=== PATIENT | male | born 1955 | race Caucasian/White ===

== ENCOUNTER 2017-09-25 20:12 | Emergency (ER) | payer MEDICAID ==
--- NOTE | 2017-09-25 20:15 | EDPHY ---
H & P Source: Patient, RN/MD, EMS, Old records Exam Limitations: No limitations - Personal History Tetanus Vaccine Date: 2013 - Medical/Surgical History Hx Asthma: No Hx Chronic Respiratory Disease: No Hx Diabetes: No Hx Cardiac Disease: Yes Hx Renal Disease: No Hx Cirrhosis: No Hx Alcoholism: No Hx HIV/AIDS: No Hx Splenectomy or Spleen Trauma: No Other PMH: pt states hx of stomach ulcers, IBS, left shoulder surgery x2, right shoulder surgery, right ACL surgery, Kleinfelter's syndrome; HTN; Recurrent Angina. schizoaffective d/o - Social History Smoking Status: Never smoked Time Seen by Provider: 09/25/17 20:15 HPI/ROS: HPI: This is a 62-year-old male presents with Chief Complaint: M1 hold Location:psych Quality: M1 hold Duration: Today Signs and Symptoms: denies auditory and visual command hallucinations, denies suicidal ideation with a plan, denies homicidal ideation, paranoid, insomnia Timing: Severity: Context: medical officer took patient as a walk-in at [facility]. Community [employer]ment Act Officer name: Ryley. The behavioral health counselor felt like he was having it increased internal dialogue and was gravely disabled due to not taking his medications for over 3 weeks for schizophrenia. Chart review shows that he was diagnosed with schizophrenia in April of 2016 secondary to chronic delusions and auditory hallucinations. He has become recently homeless after he was incarcerated for he neighbor and lost his trailer. He had been renting the trailer for 29 years but lost due to non payment of rent. Patient reports that he normally takes Haldol 2 mg daily as well as a sleeping pill medication but has not had these medications for 3 weeks due to transportation issues. He reports that his truck battery does not work and he has limited income. He has been using the bus for his basic needs but feels that bus fare to his pharmacy cost too much. He denies any auditory or visual hallucinations to me. He asked me if it is unusual to be diagnosed with schizophrenia in her 60s when he only here internal voices? It appears that he had been on Seroquel prior and has history of noncompliance. [facility] of [facility]. Patient on is hard of hearing and no longer has his hearing aids as he flushed it down the toilet while in half-way because he believed it was " tracking him." He is most concerned with not being able to sleep since February. Also reports, "chips of bone" in left foot due to an accidental tripping approximately a few weeks ago. Modifying Factors: Comment: ROS: see HPI Constitutional: No fever, no chills, no weight loss Eyes: No blurred vision Respiratory: No shortness of breath, no cough Cardiovascular: No chest pain Gastrointestinal: No nausea, no vomiting, no diarrhea Genitourinary: No dysuria Extremities: No myalgias Neurologic: No weakness, no numbness Skin: No rashes Hematologic: No bruising, no bleeding MEDICAL/SURGICAL/SOCIAL HISTORY: Medical history: Chronic schizophrenia, cannabis use disorder, Klinefelter syndrome, hard of hearing, hypertension, arthritis, wide angle glaucoma, irritable bowel syndrome, hyperlipidemia. Surgical history: Denies Social history: Currently living in another house that is smaller than his prior on. CONSTITUTIONAL: Calm, cooperative, guarded, elderly white male, good personal hygiene, awake and alert, no obvious distress HEENT: Atraumatic and normocephalic, PERRL, EOMI. Tympanic membranes clear. Oropharynx clear, no exudate and moist pink mucosa. Airway patent. No lymphadenopathy. No meningismus. Cardiovascular: Normal S1/S2, mild tachycardia, regular rhythm, without murmur rub or gallop. PULMONARY/CHEST: Symmetrical and nontender. Clear to auscultation bilaterally. Good air movement. No accessory muscle usage. ABDOMEN: Soft, nondistended, nontender, no rebound, no guarding, no peritoneal signs, no masses or organomegaly. No CVAT. EXTREMITIES: 2/2 pulses, strength 5/5, left Ankle; Plantar flexion to 50, dorsiflexion to 20. Foot inversion to 35 degree. No tenderness Anterior talofibular ligament. No tenderness Calcaneofibular ligament, no tenderness posterior talofibular ligament, no tenderness posterior inferior tibiofibular ligament. Achilles tendon intact. no deformities, no clubbing, no cyanosis or edema. NEUROLOGICAL: no focal neuro deficits. GCS 15. SKIN: Warm and dry, no erythema. no rash. Good capillary refill. PSYCH: Poor eye contact, no flight of ideas, organized thought process, good insight and judgment, denies auditory and visual command hallucinations, denies suicidal ideation with a plan, denies homicidal ideation, paranoid, mood is calm , affect is constricted, speech is clear. (Tamara Alanis) Constitutional: Initial Vital Signs Temperature (C) 36.4 C 09/25/17 20:35 Heart Rate 108 H 09/25/17 20:35 Respiratory Rate 16 09/25/17 20:35 Blood Pressure 147/99 H 09/25/17 20:35 O2 Sat (%) 93 09/25/17 20:35 O2 Delivery Mode Room Air Allergies/Adverse Reactions: amitriptyline HCl [From Elavil] Allergy (Intermediate, Verified 05/23/16 08:05) Other-Enter Comments acetaminophen Allergy (Verified 06/05/16 14:39) aspirin Allergy (Verified 06/05/16 14:39) Home Medications: Medication Instructions Recorded Testosterone Cyp 150 mg IM Q14D 05/23/16 [Depo-Testosterone 100mg/ml inj (*)] Atorvastatin Calcium [Lipitor 20 20 mg PO DAILY #0 tab 06/18/16 mg (*)] Medical Decision Making - Diagnostics Imaging Results: Imaging Impressions Foot X-Ray 09/25/17 20:43 Impression: Negative. No acute fracture. ED Course/Re-evaluation: M1 hold place upon arrival. [facility] are looking for inpatient psychiatric placement as patient is gravely disabled and unable to care for himself and has no willingness to cooperate. Labs and UDS ordered. Patient is currently calm and cooperative and no interventions are required at this time. Left foot x-ray ordered due to complaints of having "chips of bone" in it due to an accidental tripping approximately a few weeks ago. Left foot x-ray reviewed via PACs and shows no acute fracture, dislocation, degenerative changes. 2155: Labs and UDS reviewed: Unremarkable. Medically clear for mental health evaluation. 0110: EPS looking for inpatient psychiatric placement for patient. End of shift. Signed over to Dr. Tolentino pending transfer and bed availability. Patient remains calm and cooperative. Ambulatory without deficits.. This patient was seen under the supervision of my secondary supervising physician. I evaluated care for this patient independently. Discussed this patient with Dr. Montez who did not see the patient. (Tamara Alanis) 6:30 a.m.- The patient was stable throughout my shift. We are currently awaiting placement for him for his grave disability and inability care for self. He has already been evaluated by mental health. At 7:00 a.m. the case will be signed out to the oncoming provider Dr. Felix. (Helena Tolentino) I assumed care of the patient at 0700 pending psychiatric disposition. Updated 9:30 a.m.: The patient was evaluated by Mental Health and has been accepted for inpatient psychiatric admission at [facility] by Dr. Vicente. I have filled out the EMTALA transfer sheet. (Vicente Felix) Differential Diagnosis: Differential diagnosis includes but is not limited to chronic schizophrenia severe. (Zeke,Tamara) - Data Points Laboratory Results: Laboratory Results 09/25/17 21:12 09/25/17 21:12 09/25/17 09/25/17 21:35 21:12 Sodium 142 mEq/L mEq/L (134-144) Potassium 4.1 mEq/L mEq/L (3.5-5.2) Chloride 100 mEq/L mEq/L (97-110) Carbon Dioxide 29 mEq/l mEq/l (22-31) Anion Gap 13 mEq/L mEq/L (8-16) BUN 26 mg/dL H mg/dL (7-23) Creatinine 1.2 mg/dL mg/dL (0.7-1.3) Estimated GFR > 60 Glucose 109 mg/dL H mg/dL (70-100) Calcium 10.0 mg/dL mg/dL (8.5-10.4) Urine Opiates Screen NEGATIVE (NEGATIVE) Urine Barbiturates NEGATIVE (NEGATIVE) Ur Phencyclidine Scrn NEGATIVE (NEGATIVE) Ur Amphetamine Screen NEGATIVE (NEGATIVE) U Benzodiazepines Scrn NEGATIVE (NEGATIVE) Urine Cocaine Screen NEGATIVE (NEGATIVE) U Marijuana (THC) Screen NEGATIVE (NEGATIVE) Ethyl Alcohol < 10 mg/dL mg/dL (0-10) Departure - Departure Clinical Impression: Schizophrenia Qualifiers: Schizophrenia type: unspecified Qualified Code(s): F20.9 - Schizophrenia, unspecified Condition: Fair Referrals: [facility] [Other] - As per Instructions
[2017-09-25 21:23] LABS: % IMMATURE GRANULYOCYTES 0.2 % (0.0-1.1); ABSOLUTE IMMATURE GRANULOCYTES 0.01 10^3/uL (0.00-0.10); ADD DIFF? NO; ADD MORPH? NO; ADD SCAN? NO; ATYPICAL LYMPHOCYTE FLAG 0 (0-99); FRAGMENT RBC FLAG 0 (0-99); HEMOGLOBIN 16.8 g/dL (13.7-17.5); LEFT SHIFT FLG 0 (0-99); LIPEMIA HEMOLYSIS FLAG 90 (0-99); MEAN CELL HEMOGLOBIN 30.9 pg (27.9-34.1); MEAN CELL VOLUME 88.4 fL (81.5-99.8); MEAN PLATELET VOLUME 9.6 fL (8.7-11.7); PLATELET CLUMPS FLAG 0 (0-99); PLATELET COUNT 248 10^3/uL (150-400); RED BLOOD CELL COUNT 5.43 10^6/uL (4.40-6.38); RED CELL DISTRIBUTION WIDTH 12.1 % (11.5-15.2)
[2017-09-25 21:39] LABS: ANION GAP 13 mEq/L (8-16); CARBON DIOXIDE 29 mEq/l (22-31); CHLORIDE 100 mEq/L (97-110); CREATININE 1.2 mg/dL (0.7-1.3); ETHANOL SERUM < 10 mg/dL (0-10); GLOMERULAR FILTRATION RATE > 60; GLUCOSE 109 mg/dL (70-100); POTASSIUM 4.1 mEq/L (3.5-5.2); SODIUM 142 mEq/L (134-144)
[2017-09-26 09:26] VITALS: BP 135/95; PULSE 89; RESP 18; TEMP 98.6; O2SAT 95
== END 2017-09-26 12:00 ==
LOC: EDUNIT#
DX: M79.672 Pain in left foot (principal); F23 Brief psychotic disorder; I10 Essential (primary) hypertension
CPT/HCPCS: 80305; G0480

== ENCOUNTER 2017-11-19 13:39 | Emergency (ER) | payer MEDICAID ==
--- NOTE | 2017-11-19 13:49 | EDPHY ---
H & P Time Seen by Provider: 11/19/17 13:40 HPI/ROS: CHIEF COMPLAINT: Leg gave out HISTORY OF PRESENT ILLNESS: Patient is a 62-year-old man with history of schizophrenia who was at [facility] today when he states his legs gave out. He states that this has happened to him several times over the last several years. He denies any new symptoms today. No focal weakness or deficits. No paresthesias. No incontinence. No trauma. No infection or fever. The patient states that this happens when he stands up too quickly. He states that he does not typically get lightheaded or have chest pain or palpitations just that his knees give out. He has had x-rays done before. He has had EKGs and cardiac workup done before which she states have all been normal. He is not sure why this happens. His vitals and exam were normal for EMS. He did not fall to the ground. He did not lose consciousness. He did not hit his head. He does have a history of Klinefelter syndrome which is known to cause poor coordination. REVIEW OF SYSTEMS: Constitutional: denies: chills, fever, recent illness, recent injury EENTM: denies: blurred vision, double vision, nose congestion Respiratory: denies: cough, shortness of breath Cardiac: denies: chest pain, irregular heart rate, lightheadedness, palpitations Gastrointestinal/Abdominal: denies: abdominal pain, diarrhea, nausea, vomiting, blood streaked stools Genitourinary: denies: dysuria, frequency, hematuria, pain Musculoskeletal: denies: joint pain, muscle pain Skin: denies: lesions, rash, jaundice, bruising Neurological: denies: headache, numbness, paresthesia, tingling, dizziness, weakness Hematologic/Lymphatic: denies: blood clots, easy bleeding, easy bruising Immunologic/allergic: denies: HIV/AIDS, transplant EXAM: GENERAL: Well-appearing, well-nourished and in no acute distress. HEAD: Atraumatic, normocephalic. EYES: Pupils equal round and reactive to light, extraocular movements intact, sclera anicteric, conjunctiva are normal. ENT: TMs normal, nares patent, oropharynx clear without exudates. Moist mucous membranes. NECK: Normal range of motion, supple without lymphadenopathy or JVD. LUNGS: Breath sounds clear to auscultation bilaterally and equal. No wheezes rales or rhonchi. HEART: Regular rate and rhythm without murmurs, rubs or gallops. ABDOMEN: Soft, nontender, normoactive bowel sounds. No guarding, no rebound. No masses appreciated. BACK: No CVA tenderness, no spinal tenderness, step-offs or deformities EXTREMITIES: Normal range of motion, no pitting or edema. No clubbing or cyanosis. NEUROLOGICAL: No focal deficit, Cranial nerves II through XII grossly intact. Normal speech, normal gait here in the department. 5/5 strength, normal movement in all extremities, normal sensation PSYCH: Normal mood, normal affect. SKIN: Warm, dry, normal turgor, no visible rashes or lesions. Source: Patient, EMS Exam Limitations: No limitations - Personal History Tetanus Vaccine Date: 2013 - Medical/Surgical History Hx Asthma: No Hx Chronic Respiratory Disease: No Hx Diabetes: No Hx Cardiac Disease: Yes Hx Renal Disease: No Hx Cirrhosis: No Hx Alcoholism: No Hx HIV/AIDS: No Hx Splenectomy or Spleen Trauma: No Other PMH: pt states hx of stomach ulcers, IBS, left shoulder surgery x2, right shoulder surgery, right ACL surgery, Kleinfelter's syndrome; HTN; Recurrent Angina. schizoaffective d/o - Family History Significant Family History: No pertinent family hx - Social History Smoking Status: Never smoked Alcohol Use: None Constitutional: Initial Vital Signs Temperature (C) 36.6 C 11/19/17 13:47 Heart Rate 89 11/19/17 13:47 Respiratory Rate 16 11/19/17 13:47 Blood Pressure 128/90 H 11/19/17 13:47 O2 Sat (%) 94 11/19/17 13:47 O2 Delivery Mode Room Air Allergies/Adverse Reactions: amitriptyline HCl [From Elavil] Allergy (Intermediate, Verified 05/23/16 08:05) Other-Enter Comments acetaminophen Allergy (Verified 06/05/16 14:39) aspirin Allergy (Verified 06/05/16 14:39) Home Medications: Medication Instructions Recorded Testosterone Cyp 150 mg IM Q14D 05/23/16 [Depo-Testosterone 100mg/ml inj (*)] Atorvastatin Calcium [Lipitor 20 20 mg PO DAILY #0 tab 06/18/16 mg (*)] Medical Decision Making - Diagnostics EKG Interpretation: An EKG obtained and was read and documented in trace view. Please see trace view for full reading and report. Sinus rhythm, no acute ischemic changes ED Course/Re-evaluation: The patient has no acute findings. He currently is asymptomatic. He is ambulating without difficulty here in the emergency department. He has not had any new symptoms today. I will obtain an EKG because of his history and presentation but he denies any chest pain or shortness of breath etc. The patient will return to [facility] for his appointment which she had today. The patient agrees with this and declines further workup or testing. He is eager to leave. Differential Diagnosis: Partial list of the Differential diagnosis considered include but were not limited to; syncope, postural orthostasis, arrhythmia, anxiety, fracture, sprain and although unlikely based on the history and physical exam, I also considered infection, tendinopathy. I discussed these differential diagnoses and the plan with the patient as well as the usual and expected course. The patient understands that the diagnosis is provisional and that in medicine we are not always correct and that further workup is often warranted. Usual and customary warnings were given. All of the patient's questions were answered. The patient was instructed to return to the emergency department should the symptoms at all worsen or return, otherwise to followup with the physician as we discussed. Departure - Departure Disposition: Home, Routine, Self-Care Clinical Impression: Fall Qualifiers: Encounter type: initial encounter Qualified Code(s): W19.XXXA - Unspecified fall, initial encounter Condition: Fair Instructions: Fall Prevention (ED) Referrals: Patient,NotPresent [Unknown] - As per Instructions
[2017-11-19 13:50] VITALS: BP 128/90; PULSE 89; RESP 16; TEMP 97.9; O2SAT 94
--- NOTE | 2017-11-19 14:02 | CPEKG ---
Heart Rate: 83 RR Interval: 723 P-R Interval: 168 QRSD Interval: 70 QT Interval: 400 QTC Interval: 470 P [place]: 66 QRS [place]: 16 T Wave [place]: 54 EKG Severity - NORMAL ECG - EKG Impression: SINUS RHYTHM Electronically Signed By: Osiel Jiménez 19-Nov-2017 14:05:09
== END 2017-11-19 14:14 | disposition home or self-care (01) ==
LOC: EDUNIT#
DX: Z04.3 Encounter for examination and observation following other accident (principal); I10 Essential (primary) hypertension; W19.XXXA Unspecified fall, initial encounter

== ENCOUNTER 2018-02-08 15:10 | Emergency (ER) | payer MEDICAID ==
--- NOTE | 2018-02-08 15:30 | EDPHY ---
H & P Time Seen by Provider: 02/08/18 15:19 HPI/ROS: CHIEF COMPLAINT: Fatigue, blood in stool HISTORY OF PRESENT ILLNESS: The patient is a 62-year-old male who presents to the emergency department feeling fatigued. He is concerned that he has blood in his stool. He has not seen any bright red blood. He describes dark brown stool. He has previously had peptic ulcer disease. He has never had surgery for this. He is not on any specific medications for ulcers. Patient denies abdominal pain. No nausea vomiting. No lightheadedness or dizziness. No chest pain or shortness of breath. REVIEW OF SYSTEMS: My complete review of systems is negative except as mentioned in the HPI. Past Medical/Surgical History: Peptic ulcer disease, IBS, Klinefelter syndrome, hypertension, angina, schizoaffective disorder Past surgical history: Includes orthopedic surgery Social history: Patient denies alcohol or drugs. Smoking Status: Never smoked Physical Exam: 36.9, 160/102, 80, 16, 95% on room air GENERAL: No acute distress, alert. HEENT: Eyes normal to inspection, normal pharynx, no signs of dehydration. NECK: No thyromegaly, no lymphadenopathy, supple. RESPIRATORY: Clear to auscultation bilaterally, no rales, rhonchi or wheezing. CVS: Regular rate and rhythm, no rubs, murmurs, or gallops. ABDOMEN: Soft, nontender, nondistended, no organomegaly. Benign Rectal exam: Normal external exam. No palpable mass. Normal prostate. Brown stool. BACK: Normal to inspection, no CVA tenderness. SKIN: Normal color, no rash, warm, dry. No pallor. EXTREMITIES: No pedal edema, no calf tenderness, no Homans sign or cords, no joint swelling. NEURO/PSYCH: Alert and oriented, normal mood and affect, normal motor sensory exam. Constitutional: Initial Vital Signs Temperature (C) 36.9 C 02/08/18 15:14 Heart Rate 80 02/08/18 15:14 Respiratory Rate 16 02/08/18 15:14 Blood Pressure 160/102 H 02/08/18 15:14 O2 Sat (%) 95 02/08/18 15:14 O2 Delivery Mode Room Air Allergies/Adverse Reactions: amitriptyline HCl [From Elavil] Allergy (Intermediate, Verified 04/29/18 15:13) Other-Enter Comments acetaminophen Allergy (Verified 02/08/18 15:13) aspirin Allergy (Verified 02/08/18 15:13) Home Medications: Medication Instructions Recorded Testosterone Cyp 150 mg IM Q14D 05/23/16 [Depo-Testosterone 100mg/ml inj (*)] Atorvastatin Calcium [Lipitor 20 20 mg PO DAILY #0 tab 06/18/16 mg (*)] Medical Decision Making ED Course/Re-evaluation: In the emergency department I discussed possible etiologies with the patient. I answered all his questions. IV was placed. Laboratory studies were obtained. Patient's CBC and chemistry unremarkable. Hematocrit is normal. Patient's coags stool is negative. EKG: Sinus rhythm at 82. Normal axis. Normal intervals. Abnormal T-waves V4 through V6. I do not feel the patient has acute ischemia. I discussed the results with the patient. I answered all his questions. He was given warnings prior to leaving. He will follow up his primary care physician. Differential Diagnosis: My differential includes but is not limited to rectal bleeding, lower GI bleed, upper GI bleed, peptic ulcer disease, anemia, electrolyte abnormality, sugar abnormality, ACS, acute DC - Data Points Laboratory Results: Laboratory Results 02/08/18 15:30 02/08/18 15:30 02/08/18 02/08/18 02/08/18 15:30 15:30 15:30 WBC RBC Hgb Hct MCV MCH MCHC RDW Plt Count MPV Neut % (Auto) Lymph % (Auto) Johnson % (Auto) Eos % (Auto) Baso % (Auto) Nucleat RBC Rel Count Absolute Neuts (auto) Absolute Lymphs (auto) Absolute Monos (auto) Absolute Eos (auto) Absolute Basos (auto) Absolute Nucleated RBC Immature Gran % Immature Gran # PT 14.3 SEC SEC (12.0-15.0) INR 1.09 (0.83-1.16) APTT 28.9 SEC SEC (23.0-38.0) Sodium 145 mEq/L mEq/L (135-145) Potassium 3.8 mEq/L mEq/L (3.5-5.2) Chloride 104 mEq/L mEq/L (97-110) Carbon Dioxide 29 mEq/l mEq/l (22-31) Anion Gap 12 mEq/L mEq/L (8-16) BUN 7 mg/dL mg/dL (7-23) Creatinine 0.8 mg/dL mg/dL (0.7-1.3) Estimated GFR > 60 Glucose 92 mg/dL mg/dL (70-100) Calcium 9.4 mg/dL mg/dL (8.5-10.4) Stool Occult Bld Scrn NEGATIVE (NEGATIVE) 02/08/18 15:30 WBC 6.44 10^3/uL 10^3/uL (3.80-9.50) RBC 5.34 10^6/uL 10^6/uL (4.40-6.38) Hgb 16.5 g/dL g/dL (13.7-17.5) Hct 48.8 % % (40.0-51.0) MCV 91.4 fL fL (81.5-99.8) MCH 30.9 pg pg (27.9-34.1) MCHC 33.8 g/dL g/dL (32.4-36.7) RDW 12.0 % % (11.5-15.2) Plt Count 276 10^3/uL 10^3/uL (150-400) MPV 9.0 fL fL (8.7-11.7) Neut % (Auto) 69.0 % % (39.3-74.2) Lymph % (Auto) 18.8 % % (15.0-45.0) Johnson % (Auto) 9.6 % % (4.5-13.0) Eos % (Auto) 1.6 % % (0.6-7.6) Baso % (Auto) 0.8 % % (0.3-1.7) Nucleat RBC Rel Count 0.0 % % (0.0-0.2) Absolute Neuts (auto) 4.45 10^3/uL 10^3/uL (1.70-6.50) Absolute Lymphs (auto) 1.21 10^3/uL 10^3/uL (1.00-3.00) Absolute Monos (auto) 0.62 10^3/uL 10^3/uL (0.30-0.80) Absolute Eos (auto) 0.10 10^3/uL 10^3/uL (0.03-0.40) Absolute Basos (auto) 0.05 10^3/uL 10^3/uL (0.02-0.10) Absolute Nucleated RBC 0.00 10^3/uL 10^3/uL (0-0.01) Immature Gran % 0.2 % % (0.0-1.1) Immature Gran # 0.01 10^3/uL 10^3/uL (0.00-0.10) PT INR APTT Sodium Potassium Chloride Carbon Dioxide Anion Gap BUN Creatinine Estimated GFR Glucose Calcium Stool Occult Bld Scrn Departure - Departure Disposition: Home, Routine, Self-Care Clinical Impression: Fatigue Qualifiers: Fatigue type: unspecified Qualified Code(s): R53.83 - Other fatigue Condition: Good Instructions: Fatigue (ED) Referrals: Roxana Ventura MD [Primary Care Provider] - 2-3 days, if not improved
[2018-02-08 15:40] LABS: PLATELET COUNT 276 10^3/uL (150-400)
[2018-02-08 15:50] LABS: INR 1.09 (0.83-1.16); PROTIME(PATIENT) 14.3 SEC (12.0-15.0)
--- NOTE | 2018-02-08 16:20 | CPEKG ---
Heart Rate: 82 RR Interval: 732 P-R Interval: 160 QRSD Interval: 80 QT Interval: 344 QTC Interval: 402 P [place]: 56 QRS [place]: 9 EKG Severity - BORDERLINE ECG - EKG Impression: SINUS RHYTHM EKG Impression: BORDERLINE T ABNORMALITIES, DIFFUSE LEADS Electronically Signed By: Shanta Middleton 08-Feb-2018 22:49:43
[2018-02-08 16:51] VITALS: BP 147/78
== END 2018-02-08 16:50 | disposition home or self-care (01) ==
DX: R53.83 Other fatigue (principal); I10 Essential (primary) hypertension